=== PATIENT | male | born 1935 | race Caucasian/White ===

== ENCOUNTER → 2019-12-03 | Outpatient (CLI) | payer MEDICARE | END | disposition home or self-care (01) | LOC: SHCH 08:21 | PROVIDERS: ATTEND Internal Medicine Cardiovascular Disease | DX: R55 Syncope and collapse (principal); R01.1 Cardiac murmur, unspecified; I35.8 Other nonrheumatic aortic valve disorders; I51.7 Cardiomegaly | CPT/HCPCS: 93306; 93880 ==

== ENCOUNTER 2020-11-14 11:09 | Inpatient (IN) | payer MEDICARE ==
[~2020-11-14] VITALS: Ht 172.7 cm; Wt 61.3 kg
[~2020-11-14 11:09] MED LIST: ATEN50TA PO; ATOR40TA71 PO; TRAN4TAB24 PO; TRAV2.5D6 OU
[2020-11-14 11:32] LABS: BASOPHILS % (AUTO) 0.5 % (0.0-5.0); EOSINOPHILS % (AUTO) 0.2 % (0.0-8.0); HEMATOCRIT 35.4 % (42-54); LYMPHOCYTES % (AUTO) 11.8 % (21.0-51.0); MEAN CORPUSCULAR HEMOGLOBIN 27.3 pg (27.0-33.0); MEAN CORPUSCULAR HGB CONC 32.5 g/dL (32.0-36.0); MEAN CORPUSCULAR VOLUME 84.1 fL (79-99); MONOCYTES % (AUTO) 9.9 % (3.0-13.0); NEUTROPHILS % (AUTO) 77.3 % (40.0-77.0); PLATELET COUNT (AUTO) 220 K/uL (130-400); RED BLOOD CELL COUNT(AUTO) 4.21 MIL/uL (4.50-6.20); RED CELL DISTRIBUTION WIDTH 15.7 % (11.0-15.5); WHITE BLOOD COUNT (AUTO) 9.8 K/uL (4.8-10.8)
[2020-11-14] MEDS ORDERED: ONDANSETRON HCL 4 MG/2 ML VIAL ONE (11:42)
[2020-11-14] MEDS ORDERED: MORPHINE SULFATE 4 MG/1ML SYG ONE (11:42)
[2020-11-14 11:43] LABS: INR 1.09 (0.85-1.15); PROTHROMBIN TIME 11.6 SEC (9.6-11.6)
[2020-11-14 11:44] LABS: PARTIAL THROMBOPLASTIN TIME 25.1 SEC (26.3-35.5)
[2020-11-14 11:45] LABS: CARBON DIOXIDE 25 mmol/L (21-32); CHLORIDE 97 mmol/L (101-111); CREATININE 1.2 mg/dL (0.5-1.5); GLOMERULAR FILTR. RATE CALC 61 mL/min (>60); GLUCOSE,RANDOM 142 mg/dL (70-105); POTASSIUM 4.2 mmol/L (3.5-5.1); SODIUM SERUM 135 mmol/L (136-145); UREA NITROGEN, BLOOD 19 mg/dL (7-18)
[2020-11-14 11:56] LABS: B-TYPE NATRIURETIC PEPTIDE 68 pg/mL (0-100)
[2020-11-14 11:58] LABS: ALANINE AMINOTRANSFERASE 22 U/L (12-78); ALBUMIN 2.6 g/dL (3.5-5.0); ASPARTATE AMINOTRANSFERASE 22 U/L (10-37); BILIRUBIN,TOTAL 0.5 mg/dL (0.2-1.0); CREATINE KINASE, TOTAL 33 U/L (21-232); MYOGLOBIN 72 ng/mL (10-92); TOTAL PROTEIN, SERUM 6.6 g/dL (6.0-8.3); TROPONIN I < 0.04 ng/mL (0.00-0.06)
[2020-11-14] MEDS ORDERED: ONDANSETRON HCL 4 MG/2 ML VIAL IV PRN (14:45)
[2020-11-14] MEDS ORDERED: LACTULOSE 20 GM/30 ML UDCUP PO PRN (14:45)
[2020-11-14] MEDS ORDERED: DiphenhydrAMINE HCL 50 MG/ML VIAL IV PRN (14:45)
[2020-11-14] MEDS: LACTATED RINGERS 1000ML 1,000 ML IV SCH (14:45)
[2020-11-14] MEDS ORDERED: ACETAMINOPHEN 325 MG TAB PO PRN ×2 (14:45)
[2020-11-14] MEDS ORDERED: MAG HYDROX/AL HYDROX/SIMETH ES 30 ML SUSP UDCUP PO PRN (14:45)
[2020-11-14] MEDS ORDERED: GUAIFENESIN-DM 200/20 MG 10 ML PO PRN (14:45)
[2020-11-14] MEDS ORDERED: NITROGLYCERIN 0.4 MG SL TAB SL PRN (14:45)
[2020-11-14] MEDS ORDERED: DIPHENHYDRAMINE HCL 25 MG CAPSULE PO PRN (14:45)
[2020-11-14] MEDS ORDERED: MORPHINE SULFATE 2 MG/ML 1ML SYG ONE (15:07)
[2020-11-14] MEDS ORDERED: LACTATED RINGERS 1000ML 1,000 ML IV ONE (16:37)
[2020-11-14 19:05] VITALS: BP 151/79
[2020-11-14] MEDS ORDERED: TAMS-1 PO (19:55)
[2020-11-14 20:00] VITALS: BP 150/80
[2020-11-15] VITALS: BP 132/73
[2020-11-15] MEDS: LACTATED RINGERS 1000ML 1,000 ML IV SCH ×3 (00:45→19:27)
[2020-11-15 04:00] VITALS: BP 152/75
[2020-11-15] MEDS: MORPHINE SULFATE 2 MG/ML 1ML SYG IM PRN ×2 (04:13→12:06)
[2020-11-15 04:55] LABS: BASOPHILS % (AUTO) 0.6 % (0.0-5.0); EOSINOPHILS % (AUTO) 2.5 % (0.0-8.0); HEMATOCRIT 34.1 % (42-54); LYMPHOCYTES % (AUTO) 22.6 % (21.0-51.0); MEAN CORPUSCULAR HEMOGLOBIN 26.7 pg (27.0-33.0); MEAN CORPUSCULAR HGB CONC 31.7 g/dL (32.0-36.0); MEAN CORPUSCULAR VOLUME 84.4 fL (79-99); MONOCYTES % (AUTO) 14.1 % (3.0-13.0); NEUTROPHILS % (AUTO) 60.2 % (40.0-77.0); PLATELET COUNT (AUTO) 216 K/uL (130-400); RED BLOOD CELL COUNT(AUTO) 4.04 MIL/uL (4.50-6.20); RED CELL DISTRIBUTION WIDTH 15.8 % (11.0-15.5); WHITE BLOOD COUNT (AUTO) 5.2 K/uL (4.8-10.8)
[2020-11-15 05:30] LABS: ALBUMIN 2.3 g/dL (3.5-5.0); BILIRUBIN,TOTAL 0.4 mg/dL (0.2-1.0); POTASSIUM 4.3 mmol/L (3.5-5.1)
[2020-11-15 08:00] VITALS: BP 152/82
[2020-11-15] MEDS: FAMOTIDINE/PF 20 MG/2 ML VIAL IV SCH (09:00)
[2020-11-15 11:00] VITALS: BP 122/74
[2020-11-15 16:00] VITALS: BP 111/71
[2020-11-15] MEDS ORDERED: MORPHINE SULFATE 2 MG/ML 1ML SYG IV PRN (16:45)
[2020-11-15 20:00] VITALS: BP 122/72
[2020-11-16] VITALS: BP 104/61
[2020-11-16 04:00] VITALS: BP 122/69
[2020-11-16 04:34] LABS: BASOPHILS % (AUTO) 0.5 % (0.0-5.0); EOSINOPHILS % (AUTO) 4.8 % (0.0-8.0); HEMATOCRIT 35.3 % (42-54); LYMPHOCYTES % (AUTO) 31.7 % (21.0-51.0); MEAN CORPUSCULAR HEMOGLOBIN 27.4 pg (27.0-33.0); MEAN CORPUSCULAR HGB CONC 31.7 g/dL (32.0-36.0); MEAN CORPUSCULAR VOLUME 86.3 fL (79-99); MONOCYTES % (AUTO) 13.6 % (3.0-13.0); NEUTROPHILS % (AUTO) 49.2 % (40.0-77.0); PLATELET COUNT (AUTO) 201 K/uL (130-400); RED BLOOD CELL COUNT(AUTO) 4.09 MIL/uL (4.50-6.20); RED CELL DISTRIBUTION WIDTH 15.7 % (11.0-15.5); WHITE BLOOD COUNT (AUTO) 5.6 K/uL (4.8-10.8)
[2020-11-16 04:50] LABS: ALBUMIN 2.4 g/dL (3.5-5.0); BILIRUBIN,TOTAL 0.4 mg/dL (0.2-1.0); CREATININE 1.1 mg/dL (0.5-1.5); TOTAL PROTEIN, SERUM 6.4 g/dL (6.0-8.3)
[2020-11-16] MEDS: LACTATED RINGERS 1000ML 1,000 ML IV SCH ×2 (05:49→23:32)
[2020-11-16 08:32] VITALS: BP 115/76
[2020-11-16] MEDS: FAMOTIDINE/PF 20 MG/2 ML VIAL IV SCH (09:40)
[2020-11-16 11:35] VITALS: BP 117/72
[2020-11-16 18:04] VITALS: BP 117/63
[2020-11-16 20:04] VITALS: BP 111/63
[2020-11-17 00:04] VITALS: BP 128/70
[2020-11-17 04:00] VITALS: BP 125/64
[2020-11-17 04:10] LABS: BASOPHILS % (AUTO) 0.8 % (0.0-5.0); EOSINOPHILS % (AUTO) 5.3 % (0.0-8.0); HEMATOCRIT 29.2 % (42-54); LYMPHOCYTES % (AUTO) 26.8 % (21.0-51.0); MEAN CORPUSCULAR HEMOGLOBIN 27.1 pg (27.0-33.0); MEAN CORPUSCULAR HGB CONC 32.2 g/dL (32.0-36.0); MEAN CORPUSCULAR VOLUME 84.1 fL (79-99); MONOCYTES % (AUTO) 12.5 % (3.0-13.0); NEUTROPHILS % (AUTO) 54.2 % (40.0-77.0); PLATELET COUNT (AUTO) 215 K/uL (130-400); RED BLOOD CELL COUNT(AUTO) 3.47 MIL/uL (4.50-6.20); RED CELL DISTRIBUTION WIDTH 15.4 % (11.0-15.5); WHITE BLOOD COUNT (AUTO) 4.7 K/uL (4.8-10.8)
[2020-11-17 04:29] LABS: BILIRUBIN,TOTAL 0.3 mg/dL (0.2-1.0); POTASSIUM 3.6 mmol/L (3.5-5.1); TOTAL PROTEIN, SERUM 5.2 g/dL (6.0-8.3)
[2020-11-17] MEDS ORDERED: POTASSIUM CHLORIDE 20 MEQ ERTAB PO SCH (07:45)
[2020-11-17] MEDS ORDERED: MAGNESIUM 2GM PREMIX 50ML 50 ML IV PRN (07:45)
[2020-11-17 08:05] VITALS: BP 137/80
[2020-11-17] MEDS: FAMOTIDINE/PF 20 MG/2 ML VIAL IV SCH (08:33)
[2020-11-17 11:30] VITALS: BP 127/69
[2020-11-17 16:25] VITALS: BP 130/77
== END 2020-11-17 18:40 | disposition home or self-care (01) | DRG 390 ==
LOC: EDH 11:09 → EDHIP 14:45 → 3CH 17:30
PROVIDERS: ADMIT Family Medicine; ATTEND Family Medicine
PROC: 0D9670Z Drainage of Stomach with Drainage Device, Via Natural or Artificial Opening (ICD-10-PCS; principal; 2020-11-14)
DX: K56.609 Unspecified intestinal obstruction, unspecified as to partial versus complete obstruction (principal); E78.5 Hyperlipidemia, unspecified; I10 Essential (primary) hypertension; E78.00 Pure hypercholesterolemia, unspecified; I25.10 Atherosclerotic heart disease of native coronary artery without angina pectoris; Z87.891 Personal history of nicotine dependence; Z95.1 Presence of aortocoronary bypass graft; Z95.5 Presence of coronary angioplasty implant and graft; Z83.3 Family history of diabetes mellitus; Z82.49 Family history of ischemic heart disease and other diseases of the circulatory system
CPT/HCPCS: 36415; 71045; 74018; 74176; 80053; 82550; 83605; 83690; 83735; 83874; 83880; 84145; 84484; 85025; 85610; 85730; 86900; 86901; 87040; 93005; G0378; J2270; J2405; J3475; J3490; J7120

== ENCOUNTER 2020-11-23 05:00 | Inpatient (IN) | payer MEDICARE ==
[~2020-11-23] VITALS: Ht 172.7 cm; Wt 60.9 kg
[~2020-11-23 05:00] MED LIST changes: +TAMS-1 PO; -TRAN4TAB24 PO; +TRAN4TAB25 PO
[2020-11-23] MEDS ORDERED: ONDANSETRON 4MG INJ ONE ×2 (05:14→13:59)
[2020-11-23 05:17] LABS: BASOPHILS % (AUTO) 0.2 % (0.0-5.0); EOSINOPHILS % (AUTO) 0.1 % (0.0-8.0); HEMATOCRIT 37.8 % (42-54); LYMPHOCYTES % (AUTO) 9.4 % (21.0-51.0); MEAN CORPUSCULAR HEMOGLOBIN 27.1 pg (27.0-33.0); MEAN CORPUSCULAR VOLUME 84.6 fL (79-99); MONOCYTES % (AUTO) 5.8 % (3.0-13.0); NEUTROPHILS % (AUTO) 84.2 % (40.0-77.0); PLATELET COUNT (AUTO) 314 K/uL (130-400); RED BLOOD CELL COUNT(AUTO) 4.47 MIL/uL (4.50-6.20); RED CELL DISTRIBUTION WIDTH 15.9 % (11.0-15.5); WHITE BLOOD COUNT (AUTO) 14.4 K/uL (4.8-10.8)
[2020-11-23 05:32] LABS: CREATININE 1.1 mg/dL (0.5-1.5); POTASSIUM 5.2 mmol/L (3.5-5.1)
[2020-11-23 05:34] LABS: ALBUMIN 2.5 g/dL (3.5-5.0); BILIRUBIN,TOTAL 0.4 mg/dL (0.2-1.0); TOTAL PROTEIN, SERUM 6.3 g/dL (6.0-8.3)
[2020-11-23] MEDS ORDERED: MORPHINE 2 MG SYG ONE ×2 (05:35→14:00)
[2020-11-23 05:37] LABS: INR 1.07 (0.85-1.15); PROTHROMBIN TIME 11.4 SEC (9.6-11.6)
[2020-11-23 05:38] LABS: PARTIAL THROMBOPLASTIN TIME 23.6 SEC (26.3-35.5)
[2020-11-23] MEDS ORDERED: IOHEXOL-350 75 ML VIAL IV ONE (05:54)
[2020-11-23] MEDS ORDERED: ZOSYN 3.375GM+NS 50ML 50 ML IV ONE (06:57)
[2020-11-23] MEDS ORDERED: ACETAMINOPHEN 325 MG TAB PO PRN ×2 (08:30)
[2020-11-23] MEDS ORDERED: PHARMACY COMMUNICATION MISC SCH (08:30)
[2020-11-23] MEDS: ENOXAPARIN SODIUM 40 MG/0.4 ML SYRINGE SQ SCH (09:00)
[2020-11-23] MEDS: LISINOPRIL 40 MG TABLET PO SCH (09:00)
[2020-11-23] MEDS: ATENOLOL 50 MG TABLET PO SCH (09:00)
[2020-11-23] MEDS: FAMOTIDINE 20MG VIAL IV SCH ×2 (09:00→23:07)
[2020-11-23 09:03] LABS: RETICULOCYTE % (AUTO) 1.32 % (0.42-2.23)
[2020-11-23 09:22] LABS: % IRON SATURATION 8.9 % (30-44)
[2020-11-23 09:31] LABS: MAGNESIUM 1.7 mg/dL (1.80-2.40); PHOSPHORUS 4.2 mg/dL (2.5-4.9); THYROID STIMULATING HORMONE 2.36 uIU/mL (0.36-3.74)
[2020-11-23] MEDS ORDERED: ENOXAPARIN SODIUM 40 MG/0.4 ML SYRINGE SQ ONE (09:31)
[2020-11-23] MEDS ORDERED: FAMOTIDINE 20MG VIAL IV ONE (09:32)
[2020-11-23] MEDS ORDERED: ATENOLOL 25 MG TABLET ONE (09:49)
[2020-11-23] MEDS ORDERED: METOCLOPRAMIDE 10 MG/2 ML VIAL ONE (09:57)
[2020-11-23] MEDS: METOCLOPRAMIDE 10 MG/2 ML VIAL IVP SCH ×2 (12:00→18:00)
[2020-11-23] MEDS ORDERED: MORPHINE 2 MG SYG IVP PRN (14:30)
[2020-11-23] MEDS ORDERED: ONDANSETRON 4MG INJ IVP PRN (14:30)
[2020-11-23] MEDS: LUBIPROSTONE 24 MCG CAP PO SCH (17:00)
[2020-11-23] MEDS ORDERED: ATORVASTATIN 40 MG TABLET ONE (20:32)
[2020-11-23] MEDS ORDERED: TAMSULOSIN HCL 0.4 MG CAP.ER.24H ONE (20:32)
[2020-11-23] MEDS: TAMSULOSIN HCL 0.4 MG CAP.ER.24H PO SCH (21:00)
[2020-11-23] MEDS: ATORVASTATIN 20 MG TABLET PO SCH (21:00)
[2020-11-23 22:25] VITALS: BP 122/68
[2020-11-23] MEDS: 0.9%NACL 1000ML 1,000 ML IV SCH (23:01)
[2020-11-24] MEDS: METOCLOPRAMIDE 10 MG/2 ML VIAL IVP SCH ×4 (00:54→20:40)
[2020-11-24 03:59] VITALS: BP 122/69
[2020-11-24 07:59] VITALS: BP 101/50
[2020-11-24 08:56] LABS: BASOPHILS % (AUTO) 0.1 % (0.0-5.0); EOSINOPHILS % (AUTO) 0.4 % (0.0-8.0); HEMATOCRIT 29.8 % (42-54); LYMPHOCYTES % (AUTO) 6.8 % (21.0-51.0); MEAN CORPUSCULAR HEMOGLOBIN 27.1 pg (27.0-33.0); MEAN CORPUSCULAR HGB CONC 32.2 g/dL (32.0-36.0); MEAN CORPUSCULAR VOLUME 84.2 fL (79-99); MONOCYTES % (AUTO) 3.4 % (3.0-13.0); PLATELET COUNT (AUTO) 232 K/uL (130-400); RED BLOOD CELL COUNT(AUTO) 3.54 MIL/uL (4.50-6.20)
[2020-11-24] MEDS: ENOXAPARIN SODIUM 40 MG/0.4 ML SYRINGE SQ SCH (09:00)
[2020-11-24 09:11] LABS: ALBUMIN 1.8 g/dL (3.5-5.0); BILIRUBIN,TOTAL 0.3 mg/dL (0.2-1.0); CREATININE 1.1 mg/dL (0.5-1.5); POTASSIUM 3.9 mmol/L (3.5-5.1); TOTAL PROTEIN, SERUM 4.9 g/dL (6.0-8.3)
[2020-11-24] MEDS: 0.9%NACL 1000ML 1,000 ML IV SCH ×3 (10:02→20:42)
[2020-11-24] MEDS: LUBIPROSTONE 24 MCG CAP PO SCH ×2 (10:03→21:00)
[2020-11-24] MEDS: FAMOTIDINE 20MG VIAL IV SCH ×2 (10:03→20:40)
[2020-11-24] MEDS: ATENOLOL 50 MG TABLET PO SCH (10:05)
[2020-11-24] MEDS: LISINOPRIL 40 MG TABLET PO SCH (10:06)
[2020-11-24 11:48] VITALS: BP 113/64
[2020-11-24 16:00] VITALS: BP 107/59
[2020-11-24 20:34] VITALS: BP 98/56
[2020-11-24] MEDS: TAMSULOSIN HCL 0.4 MG CAP.ER.24H PO SCH (20:40)
[2020-11-24] MEDS: ATORVASTATIN 20 MG TABLET PO SCH (20:40)
[2020-11-24 23:52] VITALS: BP 111/55
[2020-11-25] VITALS (24 sets, daily range): BP systolic 99–136; BP diastolic 47–72
[2020-11-25] MEDS: METOCLOPRAMIDE 10 MG/2 ML VIAL IVP SCH ×3 (00:52→13:08)
[2020-11-25] MEDS: LUBIPROSTONE 24 MCG CAP PO SCH ×2 (08:00→19:01)
[2020-11-25] MEDS ORDERED: PROPOFOL 10 MG/ML 20ML VIAL IV ONE (08:47)
[2020-11-25] MEDS: LISINOPRIL 40 MG TABLET PO SCH (09:00)
[2020-11-25] MEDS: ATENOLOL 50 MG TABLET PO SCH (09:00)
[2020-11-25] MEDS: ENOXAPARIN SODIUM 40 MG/0.4 ML SYRINGE SQ SCH (09:00)
[2020-11-25] MEDS: PANTOPRAZOLE 40 MG TAB DR PO SCH (12:51)
[2020-11-25] MEDS: 0.9%NACL 1000ML 1,000 ML IV SCH (12:52)
[2020-11-25] MEDS: FAMOTIDINE 20MG VIAL IV SCH ×2 (12:52→20:51)
[2020-11-25] MEDS ORDERED: COMPOUND IV MISC 1 EACH IVSOLN MISC PRN (15:15)
[2020-11-25] MEDS: IRON SUCROSE COMPLEX 100 MG in 0.9%NACL 50ML 50 ML IV SCH (15:48)
[2020-11-25] MEDS: METOCLOPRAMIDE 5 MG TABLET PO SCH (19:01)
[2020-11-25] MEDS: TAMSULOSIN HCL 0.4 MG CAP.ER.24H PO SCH (20:51)
[2020-11-25] MEDS ORDERED: ATORVASTATIN 40 MG TABLET PO SCH (21:00)
[2020-11-26] VITALS: BP 118/61
[2020-11-26 03:46] VITALS: BP 106/60
[2020-11-26 04:39] LABS: BASOPHILS % (AUTO) 0.6 % (0.0-5.0); EOSINOPHILS % (AUTO) 3.2 % (0.0-8.0); HEMATOCRIT 25.9 % (42-54); LYMPHOCYTES % (AUTO) 19.9 % (21.0-51.0); MEAN CORPUSCULAR HEMOGLOBIN 27.2 pg (27.0-33.0); MEAN CORPUSCULAR VOLUME 84.9 fL (79-99); NEUTROPHILS % (AUTO) 70.1 % (40.0-77.0); PLATELET COUNT (AUTO) 189 K/uL (130-400); RED BLOOD CELL COUNT(AUTO) 3.05 MIL/uL (4.50-6.20); RED CELL DISTRIBUTION WIDTH 15.5 % (11.0-15.5); WHITE BLOOD COUNT (AUTO) 5.3 K/uL (4.8-10.8)
[2020-11-26 04:59] LABS: ALBUMIN 1.6 g/dL (3.5-5.0); BILIRUBIN,TOTAL 0.3 mg/dL (0.2-1.0); CREATININE 0.9 mg/dL (0.5-1.5); POTASSIUM 3.3 mmol/L (3.5-5.1); TOTAL PROTEIN, SERUM 4.7 g/dL (6.0-8.3)
[2020-11-26 05:24] LABS: MAGNESIUM 1.5 mg/dL (1.80-2.40)
[2020-11-26] MEDS ORDERED: MAGNESIUM 2GM PREMIX 50ML 50 ML IV PRN ×2 (06:00→06:15)
[2020-11-26] MEDS: LUBIPROSTONE 24 MCG CAP PO SCH ×2 (06:10→17:18)
[2020-11-26] MEDS: METOCLOPRAMIDE 5 MG TABLET PO SCH ×3 (06:10→17:18)
[2020-11-26] MEDS ORDERED: MAGNESIUM 2GM PREMIX 50ML 50 ML IV ONE (06:10)
[2020-11-26] MEDS: 0.9%NACL 1000ML 1,000 ML IV SCH (06:15)
[2020-11-26 08:42] VITALS: BP 129/64
[2020-11-26] MEDS ORDERED: POTASSIUM CHLORIDE 20MEQ/100ML 100 ML IV PRN ×2 (08:45)
[2020-11-26] MEDS ORDERED: LIDOCAINE HCL-MPF 1% 2ML VIAL IV PRN ×2 (08:45)
[2020-11-26] MEDS ORDERED: KCL 20 MEQ ERTAB PO PRN (08:45)
[2020-11-26] MEDS: IRON SUCROSE COMPLEX 100 MG in 0.9%NACL 50ML 50 ML IV SCH (09:45)
[2020-11-26] MEDS: LISINOPRIL 40 MG TABLET PO SCH (09:45)
[2020-11-26] MEDS: PANTOPRAZOLE 40 MG TAB DR PO SCH (09:45)
[2020-11-26] MEDS: FAMOTIDINE 20MG VIAL IV SCH (09:46)
[2020-11-26] MEDS: ATENOLOL 50 MG TABLET PO SCH (09:46)
[2020-11-26] MEDS: POTASSIUM CHLORIDE 10% ELIXIR 20 MEQ/15 ML UDCUP PO PRN ×3 (09:47→17:18)
[2020-11-26] MEDS: ENOXAPARIN SODIUM 40 MG/0.4 ML SYRINGE SQ SCH (09:48)
[2020-11-26 12:43] VITALS: BP 127/67
[2020-11-26] MEDS ORDERED: PANT40TA54 PO (16:56)
== END 2020-11-26 18:00 | disposition home or self-care (01) | DRG 389 ==
LOC: EDH 05:00 → EDHIP 08:22 → 3DH 21:19
PROVIDERS: ADMIT Internal Medicine; ATTEND Internal Medicine
PROC: 0DJ08ZZ Inspection of Upper Intestinal Tract, Via Natural or Artificial Opening Endoscopic (ICD-10-PCS; principal; 2020-11-25)
DX: K56.609 Unspecified intestinal obstruction, unspecified as to partial versus complete obstruction (principal); E87.1 Hypo-osmolality and hyponatremia; K21.00 Gastro-esophageal reflux disease with esophagitis, without bleeding; E87.5 Hyperkalemia; D72.829 Elevated white blood cell count, unspecified; I10 Essential (primary) hypertension; E78.5 Hyperlipidemia, unspecified; D64.9 Anemia, unspecified; Z53.20 Procedure and treatment not carried out because of patient's decision for unspecified reasons; Z87.891 Personal history of nicotine dependence; Z90.49 Acquired absence of other specified parts of digestive tract; Z95.1 Presence of aortocoronary bypass graft; N40.0 Benign prostatic hyperplasia without lower urinary tract symptoms; Z20.822 Contact with and (suspected) exposure to COVID-19
CPT/HCPCS: 36415; 43235; 71045; 74018; 74174; 80053; 83540; 83550; 83605; 83690; 83735; 84100; 84443; 85025; 85045; 85610; 85730; 87426; 93005; A4606; G0378; J1650; J1756; J2405; J2543; J2704; J2765; J3475; J3490; J7030; Q9967; U0003

== ENCOUNTER 2020-12-11 17:53 | Inpatient (IN) | payer MEDICARE ==
[~2020-12-11] VITALS: Ht 172.7 cm; Wt 62.1 kg
[~2020-12-11 17:53] MED LIST changes: +PANT40TA54 PO
[2020-12-11] MEDS ORDERED: DICYCLOMINE HCL 20 MG TAB ONE (18:30)
[2020-12-11 18:35] LABS: BASOPHILS % (AUTO) 0.3 % (0.0-5.0); HEMATOCRIT 34.5 % (42-54); LYMPHOCYTES % (AUTO) 9.7 % (21.0-51.0); MEAN CORPUSCULAR HEMOGLOBIN 26.1 pg (27.0-33.0); MEAN CORPUSCULAR VOLUME 84.1 fL (79-99); MONOCYTES % (AUTO) 5.3 % (3.0-13.0); NEUTROPHILS % (AUTO) 83.4 % (40.0-77.0); PLATELET COUNT (AUTO) 231 K/uL (130-400); RED CELL DISTRIBUTION WIDTH 16.8 % (11.0-15.5); WHITE BLOOD COUNT (AUTO) 12.7 K/uL (4.8-10.8)
[2020-12-11 18:48] LABS: POTASSIUM 4.9 mmol/L (3.5-5.1)
[2020-12-11 18:53] LABS: ALBUMIN 2.4 g/dL (3.5-5.0); BILIRUBIN,TOTAL 0.2 mg/dL (0.2-1.0); TOTAL PROTEIN, SERUM 6.3 g/dL (6.0-8.3)
[2020-12-11 18:58] LABS: CREATININE 1.1 mg/dL (0.5-1.5)
[2020-12-11] MEDS ORDERED: IOHEXOL-350 75 ML VIAL IV ONE (19:30)
[2020-12-11] MEDS ORDERED: ZOSYN 3.375GM+NS 50ML 50 ML IV ONE (20:50)
[2020-12-11] MEDS ORDERED: LACTULOSE 20 GM/30 ML UDCUP PO PRN (22:15)
[2020-12-11] MEDS ORDERED: NITROGLYCERIN 0.4 MG SL TAB SL PRN (22:15)
[2020-12-11] MEDS ORDERED: ACETAMINOPHEN 325 MG TAB PO PRN ×2 (22:15)
[2020-12-11] MEDS ORDERED: GUAIFENESIN-DM 200/20 MG 10 ML PO PRN (22:15)
[2020-12-11] MEDS ORDERED: DiphenhydrAMINE HCL 50 MG/ML VIAL IV PRN (22:15)
[2020-12-11] MEDS ORDERED: ONDANSETRON 4MG INJ IV PRN (22:15)
[2020-12-11] MEDS ORDERED: DIPHENHYDRAMINE HCL 25 MG CAPSULE PO PRN (22:15)
[2020-12-11] MEDS ORDERED: MAG/ALUM/SIMETH 30 ML UDCUP PO PRN (22:15)
[2020-12-12 05:05] LABS: BASOPHILS % (AUTO) 0.6 % (0.0-5.0); EOSINOPHILS % (AUTO) 3.3 % (0.0-8.0); HEMATOCRIT 29.2 % (42-54); LYMPHOCYTES % (AUTO) 26.9 % (21.0-51.0); MEAN CORPUSCULAR HEMOGLOBIN 26.6 pg (27.0-33.0); MEAN CORPUSCULAR HGB CONC 31.8 g/dL (32.0-36.0); MEAN CORPUSCULAR VOLUME 83.7 fL (79-99); MONOCYTES % (AUTO) 10.7 % (3.0-13.0); NEUTROPHILS % (AUTO) 58.1 % (40.0-77.0); PLATELET COUNT (AUTO) 181 K/uL (130-400); RED BLOOD CELL COUNT(AUTO) 3.49 MIL/uL (4.50-6.20); RED CELL DISTRIBUTION WIDTH 16.8 % (11.0-15.5); WHITE BLOOD COUNT (AUTO) 5.1 K/uL (4.8-10.8)
[2020-12-12 05:29] LABS: ALBUMIN 1.8 g/dL (3.5-5.0); BILIRUBIN,TOTAL 0.2 mg/dL (0.2-1.0); POTASSIUM 3.9 mmol/L (3.5-5.1)
[2020-12-12] MEDS ORDERED: ENOXAPARIN SODIUM 30 MG/0.3 ML SQ ONE (08:13)
[2020-12-12] MEDS: ENOXAPARIN SODIUM 30 MG/0.3 ML SQ SCH (09:00)
[2020-12-12 20:17] LABS: APPEARANCE,URINE Clear (CLEAR); BILIRUBIN,URINE Negative (NEGATIVE); COLOR,URINE Yellow (YELLOW); GLUCOSE, URINE (UA) Negative (NEGATIVE); KETONES,URINE Negative (NEGATIVE); LEUKOCYTE ESTERASE ,URINE Negative (NEGATIVE); NITRATE,URINE Negative (NEGATIVE); OCCULT BLOOD,URINE Negative (NEGATIVE); PROTEIN,URINE Negative (NEGATIVE); UROBILINOGEN,URINE 0.2 mg/dL (0.2-1.0)
[2020-12-12 22:50] VITALS: BP 172/97
[2020-12-12] MEDS: DEXTROSE 5 % AND 0.9 % NACL 1,000 ML IV SCH (23:10)
[2020-12-12] MEDS ORDERED: DOCU-116 PO (23:25)
[2020-12-13] MEDS: DEXTROSE 5 % AND 0.9 % NACL 1,000 ML IV SCH ×5 (00:40→18:54)
[2020-12-13 03:31] VITALS: BP 134/77
[2020-12-13 06:10] LABS: BASOPHILS % (AUTO) 0.9 % (0.0-5.0); EOSINOPHILS % (AUTO) 7.1 % (0.0-8.0); HEMATOCRIT 32.1 % (42-54); LYMPHOCYTES % (AUTO) 25.2 % (21.0-51.0); MEAN CORPUSCULAR HEMOGLOBIN 26.1 pg (27.0-33.0); MEAN CORPUSCULAR HGB CONC 31.2 g/dL (32.0-36.0); MEAN CORPUSCULAR VOLUME 83.8 fL (79-99); MONOCYTES % (AUTO) 11.9 % (3.0-13.0); NEUTROPHILS % (AUTO) 54.7 % (40.0-77.0); PLATELET COUNT (AUTO) 214 K/uL (130-400); RED BLOOD CELL COUNT(AUTO) 3.83 MIL/uL (4.50-6.20); RED CELL DISTRIBUTION WIDTH 16.6 % (11.0-15.5); WHITE BLOOD COUNT (AUTO) 4.5 K/uL (4.8-10.8)
[2020-12-13 06:34] LABS: ALBUMIN 1.9 g/dL (3.5-5.0); BILIRUBIN,TOTAL 0.3 mg/dL (0.2-1.0); POTASSIUM 3.7 mmol/L (3.5-5.1); TOTAL PROTEIN, SERUM 5.3 g/dL (6.0-8.3)
[2020-12-13 07:27] VITALS: BP 171/90
[2020-12-13] MEDS ORDERED: ASPI-1012 PO (09:59)
[2020-12-13] MEDS: ENOXAPARIN SODIUM 30 MG/0.3 ML SQ SCH (10:21)
[2020-12-13 11:12] VITALS: BP 121/87
[2020-12-13 15:57] VITALS: BP 129/81
[2020-12-13] MEDS: DOCUSATE SODIUM 100 MG CAP PO SCH (19:55)
[2020-12-13 20:52] VITALS: BP 156/92
[2020-12-13] MEDS ORDERED: ATORVASTATIN 20 MG TABLET PO SCH (21:00)
[2020-12-13] MEDS ORDERED: LATANOPROST 2.5 ML DROPS OU SCH (21:00)
[2020-12-13] MEDS ORDERED: TAMSULOSIN HCL 0.4 MG CAP.ER.24H PO SCH (21:00)
[2020-12-13 23:31] VITALS: BP 128/76
[2020-12-14] MEDS: DEXTROSE 5 % AND 0.9 % NACL 1,000 ML IV SCH (02:40)
[2020-12-14 03:28] VITALS: BP 126/64
[2020-12-14 05:39] LABS: EOSINOPHILS % (AUTO) 5.3 % (0.0-8.0); LYMPHOCYTES % (AUTO) 31.1 % (21.0-51.0); MEAN CORPUSCULAR HEMOGLOBIN 26.1 pg (27.0-33.0); MEAN CORPUSCULAR HGB CONC 31.2 g/dL (32.0-36.0); MEAN CORPUSCULAR VOLUME 83.7 fL (79-99); MONOCYTES % (AUTO) 12.5 % (3.0-13.0); NEUTROPHILS % (AUTO) 49.6 % (40.0-77.0); PLATELET COUNT (AUTO) 201 K/uL (130-400); RED BLOOD CELL COUNT(AUTO) 4.06 MIL/uL (4.50-6.20); RED CELL DISTRIBUTION WIDTH 16.5 % (11.0-15.5); WHITE BLOOD COUNT (AUTO) 4.2 K/uL (4.8-10.8)
[2020-12-14 06:10] LABS: ALBUMIN 1.9 g/dL (3.5-5.0); BILIRUBIN,TOTAL 0.2 mg/dL (0.2-1.0); CREATININE 0.9 mg/dL (0.5-1.5); POTASSIUM 3.6 mmol/L (3.5-5.1); TOTAL PROTEIN, SERUM 5.2 g/dL (6.0-8.3)
[2020-12-14 08:02] VITALS: BP 119/70
[2020-12-14] MEDS ORDERED: ATENOLOL 25 MG TABLET ONE (08:58)
[2020-12-14] MEDS ORDERED: LISINOPRIL 20 MG TABLET PO SCH (09:00)
[2020-12-14] MEDS ORDERED: ATENOLO PO SCH (09:00)
[2020-12-14] MEDS ORDERED: ATENOLOL PO SCH (09:00)
[2020-12-14] MEDS ORDERED: ASPIRIN 325 MG TABLET PO SCH (09:00)
[2020-12-14] MEDS: DOCUSATE SODIUM 100 MG CAP PO SCH (09:01)
[2020-12-14] MEDS: ENOXAPARIN SODIUM 30 MG/0.3 ML SQ SCH (09:04)
[2020-12-14 11:49] VITALS: BP 127/76
[2020-12-14 16:19] VITALS: BP 138/83
== END 2020-12-14 18:28 | disposition home or self-care (01) | DRG 372 ==
LOC: EDH 17:53 → OBSVTOIN 22:11 → EDHIP 22:11 → 3BH 12-12 21:03
PROVIDERS: ADMIT Family Medicine; ATTEND Family Medicine
DX: A04.9 Bacterial intestinal infection, unspecified (principal); E44.0 Moderate protein-calorie malnutrition; E78.5 Hyperlipidemia, unspecified; I10 Essential (primary) hypertension; Z80.8 Family history of malignant neoplasm of other organs or systems; Z83.3 Family history of diabetes mellitus; Z82.49 Family history of ischemic heart disease and other diseases of the circulatory system; N40.0 Benign prostatic hyperplasia without lower urinary tract symptoms; Z87.891 Personal history of nicotine dependence; Z68.20 Body mass index [BMI] 20.0-20.9, adult; Z90.49 Acquired absence of other specified parts of digestive tract
CPT/HCPCS: 36415; 74018; 74177; 80053; 81003; 83605; 83690; 84484; 85025; 87040; 87177; 87507; 99291; G0378; J1650; J2543; J7042; Q9967

== ENCOUNTER → 2020-12-18 | Outpatient (CLI) | payer MEDICARE ==
[~2020-12-18] MED LIST changes: +ASPI-1012 PO; +DIATR MEGLU/DIATRIZOATE SODIUM 30 ML BOTTLE ONE; +DOCU-116 PO; -PANT40TA54 PO
== END | disposition home or self-care (01) ==
LOC: RAH 08:20
PROVIDERS: ATTEND Specialist
DX: K56.609 Unspecified intestinal obstruction, unspecified as to partial versus complete obstruction (principal)
CPT/HCPCS: 74250; Q9963

== ENCOUNTER 2020-12-24 22:03 | Inpatient (IN) | payer MEDICARE ==
[~2020-12-24] VITALS: Ht 170.2 cm; Wt 64.5 kg
[~2020-12-24 22:03] MED LIST changes: -DIATR MEGLU/DIATRIZOATE SODIUM 30 ML BOTTLE ONE
[2020-12-24 22:39] LABS: BASOPHILS % (AUTO) 0.3 % (0.0-5.0); EOSINOPHILS % (AUTO) 0.8 % (0.0-8.0); HEMATOCRIT 35.5 % (42-54); LYMPHOCYTES % (AUTO) 8.5 % (21.0-51.0); MEAN CORPUSCULAR HEMOGLOBIN 26.5 pg (27.0-33.0); MEAN CORPUSCULAR HGB CONC 32.4 g/dL (32.0-36.0); MEAN CORPUSCULAR VOLUME 81.8 fL (79-99); NEUTROPHILS % (AUTO) 82.1 % (40.0-77.0); PLATELET COUNT (AUTO) 250 K/uL (130-400); RED BLOOD CELL COUNT(AUTO) 4.34 MIL/uL (4.50-6.20); RED CELL DISTRIBUTION WIDTH 18.2 % (11.0-15.5); WHITE BLOOD COUNT (AUTO) 6.3 K/uL (4.8-10.8)
[2020-12-24] MEDS ORDERED: ACETAMINOPHEN 500 MG TABLET ONE (22:45)
[2020-12-24] MEDS ORDERED: 0.9%NACL 1000ML 1,000 ML IV ONE (22:46)
[2020-12-24] MEDS ORDERED: ZOSYN 3.375GM+NS 50ML 50 ML IV ONE (22:46)
[2020-12-24 23:01] LABS: INR 1.1 (0.85-1.15); PROTHROMBIN TIME 11.9 SEC (9.6-11.6)
[2020-12-24 23:02] LABS: PARTIAL THROMBOPLASTIN TIME 24.2 SEC (26.3-35.5)
[2020-12-24 23:06] LABS: ALANINE AMINOTRANSFERASE 19 U/L (12-78); ALBUMIN 2.5 g/dL (3.5-5.0); ASPARTATE AMINOTRANSFERASE 25 U/L (10-37); BILIRUBIN,TOTAL 0.7 mg/dL (0.2-1.0); CARBON DIOXIDE 26 mmol/L (21-32); CHLORIDE 101 mmol/L (101-111); CREATINE KINASE, TOTAL 61 U/L (21-232); CREATININE 1.1 mg/dL (0.5-1.5); GLOMERULAR FILTR. RATE CALC 67 mL/min (>60); GLUCOSE,RANDOM 168 mg/dL (70-105); MYOGLOBIN 62 ng/mL (10-92); POTASSIUM 4.5 mmol/L (3.5-5.1); SODIUM SERUM 136 mmol/L (136-145); TOTAL PROTEIN, SERUM 5.8 g/dL (6.0-8.3); TROPONIN I < 0.04 ng/mL (0.00-0.06); UREA NITROGEN, BLOOD 23 mg/dL (7-18)
[2020-12-25] MEDS ORDERED: 0.9% NACL 500ML IV.SOLN 500 ML IV ONE (00:38)
[2020-12-25] MEDS ORDERED: DiphenhydrAMINE HCL 50 MG/ML VIAL IV PRN (01:00)
[2020-12-25] MEDS ORDERED: GUAIFENESIN-DM 200/20 MG 10 ML PO PRN (01:00)
[2020-12-25] MEDS ORDERED: NITROGLYCERIN 0.4 MG SL TAB SL PRN (01:00)
[2020-12-25] MEDS ORDERED: DIPHENHYDRAMINE HCL 25 MG CAPSULE PO PRN (01:00)
[2020-12-25] MEDS ORDERED: ONDANSETRON 4MG INJ IV PRN (01:00)
[2020-12-25] MEDS ORDERED: MAG/ALUM/SIMETH 30 ML UDCUP PO PRN (01:00)
[2020-12-25] MEDS ORDERED: LACTULOSE 20 GM/30 ML UDCUP PO PRN (01:00)
[2020-12-25] MEDS ORDERED: ACETAMINOPHEN 325 MG TAB PO PRN ×2 (01:00)
[2020-12-25 04:25] VITALS: BP 114/66
[2020-12-25] MEDS: LACTATED RINGERS 1000ML 1,000 ML IV SCH ×3 (05:06→21:26)
[2020-12-25] MEDS: ZOSYN 3.375GM+NS 50ML 50 ML IV SCH ×3 (05:06→21:24)
[2020-12-25] MEDS: ENOXAPARIN SODIUM 30 MG/0.3 ML SQ SCH (08:55)
[2020-12-25 09:01] VITALS: BP 115/66
[2020-12-25 10:26] LABS: APPEARANCE,URINE Clear (CLEAR); BILIRUBIN,URINE Negative (NEGATIVE); COLOR,URINE Yellow (YELLOW); GLUCOSE, URINE (UA) Negative (NEGATIVE); KETONES,URINE Negative (NEGATIVE); LEUKOCYTE ESTERASE ,URINE Negative (NEGATIVE); NITRATE,URINE Negative (NEGATIVE); OCCULT BLOOD,URINE Negative (NEGATIVE); PROTEIN,URINE Negative (NEGATIVE)
[2020-12-25 11:58] VITALS: BP 111/60
[2020-12-25 16:55] VITALS: BP 140/83
[2020-12-25 19:39] VITALS: BP 140/70
[2020-12-25] MEDS: LATANOPROST 2.5 ML DROPS OU SCH (21:00)
[2020-12-25] MEDS: DOCUSATE SODIUM 100 MG CAP PO SCH (21:00)
[2020-12-25] MEDS: ATORVASTATIN 40 MG TABLET PO SCH (21:24)
[2020-12-25] MEDS: TAMSULOSIN HCL 0.4 MG CAP.ER.24H PO SCH (21:25)
[2020-12-25] MEDS ORDERED: PHARMACY COMMUNICATION MISC SCH (22:00)
[2020-12-25 23:43] VITALS: BP 137/71
[2020-12-26 04:00] VITALS: BP 142/83
[2020-12-26] MEDS: ZOSYN 3.375GM+NS 50ML 50 ML IV SCH ×3 (05:00→20:43)
[2020-12-26] MEDS: LACTATED RINGERS 1000ML 1,000 ML IV SCH (06:24)
[2020-12-26 06:25] LABS: BASOPHILS % (AUTO) 0.5 % (0.0-5.0); EOSINOPHILS % (AUTO) 3.9 % (0.0-8.0); HEMATOCRIT 31.4 % (42-54); LYMPHOCYTES % (AUTO) 15.7 % (21.0-51.0); MEAN CORPUSCULAR HGB CONC 31.2 g/dL (32.0-36.0); MEAN CORPUSCULAR VOLUME 83.3 fL (79-99); MONOCYTES % (AUTO) 8.2 % (3.0-13.0); NEUTROPHILS % (AUTO) 71.3 % (40.0-77.0); PLATELET COUNT (AUTO) 198 K/uL (130-400); RED BLOOD CELL COUNT(AUTO) 3.77 MIL/uL (4.50-6.20); RED CELL DISTRIBUTION WIDTH 18.5 % (11.0-15.5); WHITE BLOOD COUNT (AUTO) 5.6 K/uL (4.8-10.8)
[2020-12-26 06:40] LABS: ALBUMIN 1.8 g/dL (3.5-5.0); BILIRUBIN,TOTAL 0.5 mg/dL (0.2-1.0); CREATININE 1.1 mg/dL (0.5-1.5); POTASSIUM 4.8 mmol/L (3.5-5.1); TOTAL PROTEIN, SERUM 4.9 g/dL (6.0-8.3)
[2020-12-26 08:55] VITALS: BP 126/74
[2020-12-26] MEDS: DOCUSATE SODIUM 100 MG CAP PO SCH ×2 (09:00→20:43)
[2020-12-26] MEDS: LISINOPRIL 20 MG TABLET PO SCH (10:00)
[2020-12-26] MEDS: ASPIRIN 325 MG TABLET PO SCH (10:01)
[2020-12-26] MEDS: ATENOLOL 50 MG TABLET PO SCH (10:01)
[2020-12-26] MEDS: ENOXAPARIN SODIUM 30 MG/0.3 ML SQ SCH (10:02)
[2020-12-26] MEDS ORDERED: AEC81 PO (10:05)
[2020-12-26 11:48] VITALS: BP 127/69
[2020-12-26 16:30] VITALS: BP 122/67
[2020-12-26 19:51] VITALS: BP 132/77
[2020-12-26] MEDS: LATANOPROST 2.5 ML DROPS OU SCH (20:43)
[2020-12-26] MEDS: ATORVASTATIN 40 MG TABLET PO SCH (20:43)
[2020-12-26] MEDS: TAMSULOSIN HCL 0.4 MG CAP.ER.24H PO SCH (20:43)
[2020-12-26 23:28] VITALS: BP 120/67
[2020-12-27 04:00] VITALS: BP 127/64
[2020-12-27] MEDS: ZOSYN 3.375GM+NS 50ML 50 ML IV SCH ×3 (05:25→20:50)
[2020-12-27 06:15] LABS: BASOPHILS % (AUTO) 0.8 % (0.0-5.0); EOSINOPHILS % (AUTO) 6.2 % (0.0-8.0); HEMATOCRIT 31.1 % (42-54); LYMPHOCYTES % (AUTO) 20.2 % (21.0-51.0); MEAN CORPUSCULAR HEMOGLOBIN 26.1 pg (27.0-33.0); MEAN CORPUSCULAR HGB CONC 31.8 g/dL (32.0-36.0); MEAN CORPUSCULAR VOLUME 81.8 fL (79-99); MONOCYTES % (AUTO) 9.9 % (3.0-13.0); NEUTROPHILS % (AUTO) 62.5 % (40.0-77.0); PLATELET COUNT (AUTO) 223 K/uL (130-400); RED CELL DISTRIBUTION WIDTH 18.1 % (11.0-15.5); WHITE BLOOD COUNT (AUTO) 4.9 K/uL (4.8-10.8)
[2020-12-27 06:40] LABS: ALBUMIN 1.8 g/dL (3.5-5.0); BILIRUBIN,TOTAL 0.4 mg/dL (0.2-1.0); CREATININE 1.1 mg/dL (0.5-1.5); POTASSIUM 3.5 mmol/L (3.5-5.1); TOTAL PROTEIN, SERUM 4.9 g/dL (6.0-8.3)
[2020-12-27 07:55] VITALS: BP 134/82
[2020-12-27] MEDS: ASPIRIN 325 MG TABLET PO SCH ×2 (11:51→12:01)
[2020-12-27] MEDS: LISINOPRIL 20 MG TABLET PO SCH (11:52)
[2020-12-27] MEDS: DOCUSATE SODIUM 100 MG CAP PO SCH ×2 (11:52→20:50)
[2020-12-27] MEDS: ATENOLOL 50 MG TABLET PO SCH (11:52)
[2020-12-27] MEDS: ENOXAPARIN SODIUM 30 MG/0.3 ML SQ SCH (11:54)
[2020-12-27] MEDS ORDERED: PHARMACY COMMUNICATION MISC SCH (12:15)
[2020-12-27 14:30] VITALS: BP 131/73
[2020-12-27 16:46] VITALS: BP 143/74
[2020-12-27 20:30] VITALS: BP 180/86
[2020-12-27] MEDS ORDERED: HYDRALAZINE 20MG/ML VIAL IM PRN (20:45)
[2020-12-27] MEDS: TAMSULOSIN HCL 0.4 MG CAP.ER.24H PO SCH (20:50)
[2020-12-27] MEDS: ATORVASTATIN 40 MG TABLET PO SCH (20:50)
[2020-12-27] MEDS: PANTOPRAZOLE 40 MG TAB DR PO SCH (20:59)
[2020-12-27] MEDS: LATANOPROST 2.5 ML DROPS OU SCH (20:59)
[2020-12-27 23:00] VITALS: BP 118/64
[2020-12-28 03:30] VITALS: BP 115/63
[2020-12-28] MEDS: ZOSYN 3.375GM+NS 50ML 50 ML IV SCH ×3 (04:38→21:18)
[2020-12-28 05:50] LABS: BASOPHILS % (AUTO) 1.1 % (0.0-5.0); EOSINOPHILS % (AUTO) 6.4 % (0.0-8.0); HEMATOCRIT 33.2 % (42-54); LYMPHOCYTES % (AUTO) 27.3 % (21.0-51.0); MEAN CORPUSCULAR VOLUME 83.8 fL (79-99); PLATELET COUNT (AUTO) 232 K/uL (130-400); RED BLOOD CELL COUNT(AUTO) 3.96 MIL/uL (4.50-6.20); RED CELL DISTRIBUTION WIDTH 18.3 % (11.0-15.5); WHITE BLOOD COUNT (AUTO) 4.7 K/uL (4.8-10.8)
[2020-12-28 06:19] LABS: ALBUMIN 1.8 g/dL (3.5-5.0); BILIRUBIN,TOTAL 0.3 mg/dL (0.2-1.0); POTASSIUM 3.3 mmol/L (3.5-5.1)
[2020-12-28 08:00] VITALS: BP 152/77
[2020-12-28] MEDS: LISINOPRIL 20 MG TABLET PO SCH (09:16)
[2020-12-28] MEDS: DOCUSATE SODIUM 100 MG CAP PO SCH ×2 (09:16→21:18)
[2020-12-28] MEDS: PANTOPRAZOLE 40 MG TAB DR PO SCH (09:17)
[2020-12-28] MEDS: ATENOLOL 50 MG TABLET PO SCH (09:17)
[2020-12-28] MEDS: ASPIRIN 325MG EC TAB PO SCH (09:17)
[2020-12-28] MEDS: ENOXAPARIN SODIUM 30 MG/0.3 ML SQ SCH (09:18)
[2020-12-28 12:00] VITALS: BP 121/72
[2020-12-28] MEDS ORDERED: KCL 20 MEQ ERTAB PO ONE (14:28)
[2020-12-28] MEDS ORDERED: POTASSIUM CHLORIDE 10% ELIXIR 20 MEQ/15 ML UDCUP PO PRN (14:30)
[2020-12-28] MEDS ORDERED: POTASSIUM CHLORIDE 20MEQ/100ML 100 ML IV PRN (14:30)
[2020-12-28] MEDS ORDERED: LIDOCAINE HCL-MPF 1% 2ML VIAL IV PRN (14:30)
[2020-12-28] MEDS ORDERED: KCL 20 MEQ ERTAB PO PRN (14:30)
[2020-12-28 16:03] VITALS: BP 97/57
[2020-12-28 20:00] VITALS: BP 151/81
[2020-12-28] MEDS: ATORVASTATIN 40 MG TABLET PO SCH (21:18)
[2020-12-28] MEDS: TAMSULOSIN HCL 0.4 MG CAP.ER.24H PO SCH (21:18)
[2020-12-28] MEDS: LATANOPROST 2.5 ML DROPS OU SCH (22:24)
[2020-12-29] VITALS: BP 131/69
[2020-12-29 04:00] VITALS: BP 153/83
[2020-12-29 05:19] LABS: BASOPHILS % (AUTO) 0.7 % (0.0-5.0); EOSINOPHILS % (AUTO) 8.7 % (0.0-8.0); LYMPHOCYTES % (AUTO) 34.7 % (21.0-51.0); MEAN CORPUSCULAR HEMOGLOBIN 25.9 pg (27.0-33.0); MEAN CORPUSCULAR HGB CONC 31.6 g/dL (32.0-36.0); MEAN CORPUSCULAR VOLUME 81.8 fL (79-99); MONOCYTES % (AUTO) 11.4 % (3.0-13.0); PLATELET COUNT (AUTO) 244 K/uL (130-400); RED BLOOD CELL COUNT(AUTO) 3.79 MIL/uL (4.50-6.20); RED CELL DISTRIBUTION WIDTH 18.4 % (11.0-15.5); WHITE BLOOD COUNT (AUTO) 4.1 K/uL (4.8-10.8)
[2020-12-29] MEDS: ZOSYN 3.375GM+NS 50ML 50 ML IV SCH (05:46)
[2020-12-29 05:54] LABS: ALBUMIN 1.8 g/dL (3.5-5.0); BILIRUBIN,TOTAL 0.4 mg/dL (0.2-1.0); CREATININE 1.1 mg/dL (0.5-1.5); POTASSIUM 3.5 mmol/L (3.5-5.1); TOTAL PROTEIN, SERUM 4.8 g/dL (6.0-8.3)
[2020-12-29 08:00] VITALS: BP 141/71
[2020-12-29] MEDS: DOCUSATE SODIUM 100 MG CAP PO SCH (09:00)
[2020-12-29] MEDS: ENOXAPARIN SODIUM 30 MG/0.3 ML SQ SCH (09:46)
[2020-12-29] MEDS: ATENOLOL 50 MG TABLET PO SCH (09:47)
[2020-12-29] MEDS: PANTOPRAZOLE 40 MG TAB DR PO SCH (09:47)
[2020-12-29] MEDS: ASPIRIN 325MG EC TAB PO SCH (09:47)
[2020-12-29] MEDS: LISINOPRIL 20 MG TABLET PO SCH (09:47)
[2020-12-29] MEDS ORDERED: CEFTRIAXONE 1G VIAL IVP SCH (10:15)
[2020-12-29 11:23] VITALS: BP 116/68
[2020-12-29 16:00] VITALS: BP 105/72
[2020-12-29] MEDS ORDERED: CEPH500T PO (16:19)
[2020-12-29] MEDS ORDERED: PANT40TA PO (16:21)
== END 2020-12-29 19:23 | disposition home or self-care (01) | DRG 392 ==
LOC: EDH 22:03 → EDHIP 12-25 00:58 → 3AH 12-25 03:40
PROVIDERS: ADMIT Family Medicine; ATTEND Family Medicine
DX: K52.9 Noninfective gastroenteritis and colitis, unspecified (principal); E44.0 Moderate protein-calorie malnutrition; I11.9 Hypertensive heart disease without heart failure; I25.10 Atherosclerotic heart disease of native coronary artery without angina pectoris; D64.9 Anemia, unspecified; E78.00 Pure hypercholesterolemia, unspecified; E78.5 Hyperlipidemia, unspecified; B96.1 Klebsiella pneumoniae [K. pneumoniae] as the cause of diseases classified elsewhere; Z20.822 Contact with and (suspected) exposure to COVID-19; Z95.1 Presence of aortocoronary bypass graft; Z68.22 Body mass index [BMI] 22.0-22.9, adult; Z80.9 Family history of malignant neoplasm, unspecified; Z83.3 Family history of diabetes mellitus; Z82.49 Family history of ischemic heart disease and other diseases of the circulatory system; Z79.82 Long term (current) use of aspirin; Z79.899 Other long term (current) drug therapy; Z90.49 Acquired absence of other specified parts of digestive tract
CPT/HCPCS: 36415; 71045; 71250; 74176; 80053; 81003; 82550; 83605; 83874; 84145; 84484; 85025; 85610; 85730; 86900; 86901; 87040; 87046; 87077; 87088; 87186; 87426; 87804; 87880; 93005; 99291; G0378; J0360; J0696; J1650; J2543; J7030; J7040; J7120; U0003

== ENCOUNTER 2021-01-21 13:11 | Inpatient (IN) | payer MEDICARE ==
[~2021-01-21] VITALS: Ht 170.2 cm; Wt 59.0 kg
[~2021-01-21 13:11] MED LIST changes: +AEC81 PO; -ASPI-1012 PO; +CEPH500T PO; +PANT40TA PO
[2021-01-21] MEDS ORDERED: ONDANSETRON 4MG INJ ONE (14:01)
[2021-01-21] MEDS ORDERED: 0.9%NACL 1000ML 1,000 ML IV ONE ×2 (14:02→15:32)
[2021-01-21] MEDS ORDERED: MORPHINE 4 MG SYG ONE (14:02)
[2021-01-21 14:15] LABS: BASOPHILS % (AUTO) 0.2 % (0.0-5.0); EOSINOPHILS % (AUTO) 0.8 % (0.0-8.0); HEMATOCRIT 36.6 % (42-54); MEAN CORPUSCULAR HEMOGLOBIN 26.4 pg (27.0-33.0); MEAN CORPUSCULAR VOLUME 82.4 fL (79-99); MONOCYTES % (AUTO) 3.7 % (3.0-13.0); NEUTROPHILS % (AUTO) 91.9 % (40.0-77.0); PLATELET COUNT (AUTO) 272 K/uL (130-400); RED BLOOD CELL COUNT(AUTO) 4.44 MIL/uL (4.50-6.20); RED CELL DISTRIBUTION WIDTH 19.7 % (11.0-15.5); WHITE BLOOD COUNT (AUTO) 14.8 K/uL (4.8-10.8)
[2021-01-21 14:27] LABS: CREATININE 1.5 mg/dL (0.5-1.5); POTASSIUM 4.6 mmol/L (3.5-5.1)
[2021-01-21 14:31] LABS: ALBUMIN 2.6 g/dL (3.5-5.0); BILIRUBIN,TOTAL 0.4 mg/dL (0.2-1.0); TOTAL PROTEIN, SERUM 6.4 g/dL (6.0-8.3)
[2021-01-21 14:33] LABS: INR 1.06 (0.85-1.15); PROTHROMBIN TIME 11.5 SEC (9.6-11.6)
[2021-01-21 14:35] LABS: PARTIAL THROMBOPLASTIN TIME 23.9 SEC (26.3-35.5)
[2021-01-21] MEDS ORDERED: ACETAMINOPHEN 325 MG TAB ONE (14:37)
[2021-01-21] MEDS ORDERED: ZOSYN 3.375GM+NS 50ML 50 ML IV ONE (14:37)
[2021-01-21 14:48] LABS: B-TYPE NATRIURETIC PEPTIDE 71 pg/mL (0-100)
[2021-01-21] MEDS ORDERED: ONDANSETRON 4MG INJ IVP PRN (17:00)
[2021-01-21] MEDS ORDERED: FAMOTIDINE 20MG VIAL IV SCH ×2 (17:00→17:15)
[2021-01-21] MEDS ORDERED: PHARMACY COMMUNICATION MISC SCH (17:30)
[2021-01-21] MEDS ORDERED: LACTATED RINGERS 1000ML 1,000 ML IV ONE (17:55)
[2021-01-21] MEDS ORDERED: HYDROMORPHONE 0.5 MG SYG (0.5MG/0.5ML) IVP PRN (19:30)
[2021-01-21] MEDS: ZOSYN 3.375GM+NS 50ML 50 ML IV SCH (20:47)
[2021-01-21] MEDS: LACTATED RINGERS 1000ML 1,000 ML IV SCH (20:47)
[2021-01-21 21:44] VITALS: BP 146/78
[2021-01-21 22:30] LABS: APPEARANCE,URINE Clear (CLEAR); BILIRUBIN,URINE Negative (NEGATIVE); COLOR,URINE Yellow (YELLOW); GLUCOSE, URINE (UA) Negative (NEGATIVE); KETONES,URINE Trace mg/dL (NEGATIVE); LEUKOCYTE ESTERASE ,URINE Negative (NEGATIVE); NITRATE,URINE Negative (NEGATIVE); OCCULT BLOOD,URINE Negative (NEGATIVE); PH,URINE 5.5 (5.0-8.0); PROTEIN,URINE Negative (NEGATIVE); UROBILINOGEN,URINE 0.2 mg/dL (0.2-1.0)
[2021-01-21] MEDS ORDERED: TRAN4TAB25 PO (22:45)
[2021-01-21] MEDS ORDERED: OMEP20TA25 PO (22:45)
[2021-01-21] MEDS ORDERED: ASPI-1026 PO (22:45)
[2021-01-21] MEDS ORDERED: DOCU-116 PO (22:46)
[2021-01-22 00:04] VITALS: BP 105/59
[2021-01-22 04:46] VITALS: BP_SYST 105; BP_SYST 121; BP_DIAS 59; BP_DIAS 66
[2021-01-22] MEDS: LACTATED RINGERS 1000ML 1,000 ML IV SCH ×2 (06:05→18:03)
[2021-01-22 06:12] LABS: BASOPHILS % (AUTO) 0.5 % (0.0-5.0); EOSINOPHILS % (AUTO) 1.8 % (0.0-8.0); HEMATOCRIT 30.4 % (42-54); LYMPHOCYTES % (AUTO) 13.9 % (21.0-51.0); MEAN CORPUSCULAR HEMOGLOBIN 25.9 pg (27.0-33.0); MEAN CORPUSCULAR HGB CONC 31.3 g/dL (32.0-36.0); MEAN CORPUSCULAR VOLUME 82.8 fL (79-99); MONOCYTES % (AUTO) 6.6 % (3.0-13.0); NEUTROPHILS % (AUTO) 76.9 % (40.0-77.0); PLATELET COUNT (AUTO) 219 K/uL (130-400); RED BLOOD CELL COUNT(AUTO) 3.67 MIL/uL (4.50-6.20); RED CELL DISTRIBUTION WIDTH 19.9 % (11.0-15.5); WHITE BLOOD COUNT (AUTO) 7.4 K/uL (4.8-10.8)
[2021-01-22 06:39] LABS: ALBUMIN 1.8 g/dL (3.5-5.0); BILIRUBIN,TOTAL 0.4 mg/dL (0.2-1.0); CREATININE 1.2 mg/dL (0.5-1.5); MAGNESIUM 1.3 mg/dL (1.80-2.40); POTASSIUM 4.3 mmol/L (3.5-5.1); TOTAL PROTEIN, SERUM 5.1 g/dL (6.0-8.3)
[2021-01-22] MEDS ORDERED: MAGNESIUM 2GM PREMIX 50ML 50 ML IV PRN (07:45)
[2021-01-22 08:00] VITALS: BP 132/79
[2021-01-22] MEDS: ZOSYN 3.375GM+NS 50ML 50 ML IV SCH (08:27)
[2021-01-22] MEDS: FAMOTIDINE 20MG VIAL IV SCH (08:27)
[2021-01-22 12:00] VITALS: BP 117/70
[2021-01-22 16:00] VITALS: BP 135/74
[2021-01-22 20:00] VITALS: BP 123/73
[2021-01-22] MEDS: TAMSULOSIN HCL 0.4 MG CAP.ER.24H PO SCH (20:09)
[2021-01-23] VITALS (7 sets, daily range): BP systolic 109–154; BP diastolic 61–84
[2021-01-23] MEDS: FAMOTIDINE 20MG VIAL IV SCH (08:23)
[2021-01-23 08:46] LABS: BASOPHILS % (AUTO) 0.4 % (0.0-5.0); EOSINOPHILS % (AUTO) 2.2 % (0.0-8.0); HEMATOCRIT 31.9 % (42-54); LYMPHOCYTES % (AUTO) 13.6 % (21.0-51.0); MEAN CORPUSCULAR HEMOGLOBIN 26.3 pg (27.0-33.0); MEAN CORPUSCULAR HGB CONC 31.7 g/dL (32.0-36.0); MEAN CORPUSCULAR VOLUME 83.1 fL (79-99); MONOCYTES % (AUTO) 8.2 % (3.0-13.0); NEUTROPHILS % (AUTO) 75.3 % (40.0-77.0); PLATELET COUNT (AUTO) 217 K/uL (130-400); RED BLOOD CELL COUNT(AUTO) 3.84 MIL/uL (4.50-6.20); RED CELL DISTRIBUTION WIDTH 20.1 % (11.0-15.5); WHITE BLOOD COUNT (AUTO) 7.8 K/uL (4.8-10.8)
[2021-01-23 08:57] LABS: ALBUMIN 1.9 g/dL (3.5-5.0); BILIRUBIN,TOTAL 0.4 mg/dL (0.2-1.0); POTASSIUM 3.8 mmol/L (3.5-5.1); TOTAL PROTEIN, SERUM 5.3 g/dL (6.0-8.3)
[2021-01-23] MEDS: LACTATED RINGERS 1000ML 1,000 ML IV SCH (14:23)
[2021-01-23] MEDS: TAMSULOSIN HCL 0.4 MG CAP.ER.24H PO SCH (20:43)
[2021-01-24 04:04] LABS: BASOPHILS % (AUTO) 0.4 % (0.0-5.0); EOSINOPHILS % (AUTO) 2.5 % (0.0-8.0); HEMATOCRIT 28.9 % (42-54); LYMPHOCYTES % (AUTO) 12.6 % (21.0-51.0); MEAN CORPUSCULAR HEMOGLOBIN 26.8 pg (27.0-33.0); MEAN CORPUSCULAR HGB CONC 33.2 g/dL (32.0-36.0); MEAN CORPUSCULAR VOLUME 80.7 fL (79-99); MONOCYTES % (AUTO) 7.2 % (3.0-13.0); PLATELET COUNT (AUTO) 198 K/uL (130-400); RED BLOOD CELL COUNT(AUTO) 3.58 MIL/uL (4.50-6.20); RED CELL DISTRIBUTION WIDTH 19.4 % (11.0-15.5); WHITE BLOOD COUNT (AUTO) 6.8 K/uL (4.8-10.8)
[2021-01-24 04:19] LABS: ALBUMIN 1.7 g/dL (3.5-5.0); BILIRUBIN,TOTAL 0.3 mg/dL (0.2-1.0); CREATININE 0.9 mg/dL (0.5-1.5); POTASSIUM 3.7 mmol/L (3.5-5.1); TOTAL PROTEIN, SERUM 4.9 g/dL (6.0-8.3)
[2021-01-24 04:22] VITALS: BP 120/69
[2021-01-24 08:00] VITALS: BP 124/71
[2021-01-24] MEDS: FAMOTIDINE 20MG VIAL IV SCH (08:38)
[2021-01-24 11:25] VITALS: BP 134/79
[2021-01-24] MEDS: LACTATED RINGERS 1000ML 1,000 ML IV SCH (12:27)
== END 2021-01-24 14:00 | disposition home health service (06) | DRG 872 ==
LOC: EDH 13:11 → EDHIP 16:36 → 4DH 20:40
PROVIDERS: ADMIT Family Medicine; ATTEND Family Medicine
PROC: 0D9670Z Drainage of Stomach with Drainage Device, Via Natural or Artificial Opening (ICD-10-PCS; principal; 2021-01-22)
DX: A41.9 Sepsis, unspecified organism (principal); K56.609 Unspecified intestinal obstruction, unspecified as to partial versus complete obstruction; N17.9 Acute kidney failure, unspecified; I25.10 Atherosclerotic heart disease of native coronary artery without angina pectoris; K21.00 Gastro-esophageal reflux disease with esophagitis, without bleeding; R53.81 Other malaise; K59.00 Constipation, unspecified; E66.9 Obesity, unspecified; I10 Essential (primary) hypertension; E78.5 Hyperlipidemia, unspecified; Z80.9 Family history of malignant neoplasm, unspecified; Z95.1 Presence of aortocoronary bypass graft; Z83.3 Family history of diabetes mellitus; Z68.20 Body mass index [BMI] 20.0-20.9, adult; Z79.899 Other long term (current) drug therapy; Z79.82 Long term (current) use of aspirin; Z90.49 Acquired absence of other specified parts of digestive tract
CPT/HCPCS: 36415; 71045; 74176; 80053; 81003; 82948; 83605; 83690; 83735; 83880; 84145; 84484; 85025; 85610; 85730; 86900; 86901; 87040; 93005; 97039; 99291; G0378; J2270; J2405; J2543; J3475; J3490; J7030; J7120

== ENCOUNTER 2021-03-13 16:36 | Inpatient (IN) | payer MEDICARE ==
[~2021-03-13] VITALS: Ht 170.2 cm; Wt 65.9 kg
[~2021-03-13 16:36] MED LIST changes: -AEC81 PO; +ASPI-1026 PO; -CEPH500T PO; +OMEP20TA25 PO; -PANT40TA PO
[2021-03-13] MEDS ORDERED: ONDANSETRON HCL 4 MG/2 ML VIAL ONE (17:20)
[2021-03-13 18:11] LABS: BASOPHILS % (AUTO) 0.5 % (0.0-5.0); HEMATOCRIT 35.8 % (42-54); LYMPHOCYTES % (AUTO) 14.3 % (21.0-51.0); MEAN CORPUSCULAR HEMOGLOBIN 27.1 pg (27.0-33.0); MEAN CORPUSCULAR HGB CONC 32.7 g/dL (32.0-36.0); MEAN CORPUSCULAR VOLUME 83.1 fL (79-99); MONOCYTES % (AUTO) 14.3 % (3.0-13.0); NEUTROPHILS % (AUTO) 69.4 % (40.0-77.0); PLATELET COUNT (AUTO) 268 K/uL (130-400); RED BLOOD CELL COUNT(AUTO) 4.31 MIL/uL (4.50-6.20); WHITE BLOOD COUNT (AUTO) 5.7 K/uL (4.8-10.8)
[2021-03-13 18:23] LABS: INR 1.02 (0.85-1.15); PROTHROMBIN TIME 11.1 SEC (9.6-11.6)
[2021-03-13 18:25] LABS: PARTIAL THROMBOPLASTIN TIME 25.4 SEC (26.3-35.5)
[2021-03-13 18:31] LABS: CARBON DIOXIDE 24 mmol/L (21-32); CHLORIDE 98 mmol/L (101-111); CREATININE 1.4 mg/dL (0.5-1.5); GLOMERULAR FILTR. RATE CALC 51 mL/min (>60); GLUCOSE,RANDOM 190 mg/dL (70-105); POTASSIUM 4.3 mmol/L (3.5-5.1); SODIUM SERUM 132 mmol/L (136-145); UREA NITROGEN, BLOOD 27 mg/dL (7-18)
[2021-03-13 18:32] LABS: B-TYPE NATRIURETIC PEPTIDE 63 pg/mL (0-100)
[2021-03-13 18:35] LABS: ALANINE AMINOTRANSFERASE 17 U/L (12-78); ASPARTATE AMINOTRANSFERASE 17 U/L (10-37); BILIRUBIN,TOTAL 0.2 mg/dL (0.2-1.0); TOTAL PROTEIN, SERUM 6.1 g/dL (6.0-8.3)
[2021-03-13 18:36] LABS: LIPASE < 50 U/L (114-286)
[2021-03-13] MEDS ORDERED: DIATR MEGLU/DIATRIZOATE SODIUM 30 ML BOTTLE ONE ×2 (20:24→23:07)
[2021-03-13] MEDS ORDERED: ONDANSETRON HCL 4 MG/2 ML VIAL IV PRN (20:30)
[2021-03-13] MEDS ORDERED: MORPHINE SULFATE 2 MG/ML 1ML SYG IV PRN (20:30)
[2021-03-13] MEDS ORDERED: ACETAMINOPHEN 325 MG TAB PO PRN ×2 (20:30)
[2021-03-13 22:35] VITALS: BP 123/77
[2021-03-13] MEDS: FAMOTIDINE/PF 20 MG/2 ML VIAL IV SCH (23:05)
[2021-03-13] MEDS: SODIUM CHLORIDE 0.9% 1000ML 1,000 ML IV SCH (23:05)
[2021-03-13] MEDS ORDERED: ONDA4TAB10 PO (23:19)
[2021-03-13] MEDS ORDERED: MEGE400O4 PO (23:19)
[2021-03-13] MEDS ORDERED: NITR0.4T50 SL (23:19)
[2021-03-13] MEDS ORDERED: FAMO20TA8 PO (23:19)
[2021-03-13] MEDS ORDERED: ATEN25TA PO (23:19)
[2021-03-14 04:31] VITALS: BP 128/75
[2021-03-14] MEDS ORDERED: NITROGLYCERIN 0.4 MG SL TAB SL SCH (04:45)
[2021-03-14] MEDS: SENNOSIDES 8.6 MG TABLET PO SCH ×2 (05:19→23:32)
[2021-03-14 05:43] LABS: BASOPHILS % (AUTO) 0.6 % (0.0-5.0); EOSINOPHILS % (AUTO) 1.3 % (0.0-8.0); HEMATOCRIT 32.1 % (42-54); LYMPHOCYTES % (AUTO) 18.3 % (21.0-51.0); MEAN CORPUSCULAR HEMOGLOBIN 27.9 pg (27.0-33.0); MEAN CORPUSCULAR HGB CONC 34.3 g/dL (32.0-36.0); MEAN CORPUSCULAR VOLUME 81.5 fL (79-99); MONOCYTES % (AUTO) 14.8 % (3.0-13.0); NEUTROPHILS % (AUTO) 64.6 % (40.0-77.0); PLATELET COUNT (AUTO) 262 K/uL (130-400); RED BLOOD CELL COUNT(AUTO) 3.94 MIL/uL (4.50-6.20); RED CELL DISTRIBUTION WIDTH 17.8 % (11.0-15.5); WHITE BLOOD COUNT (AUTO) 4.7 K/uL (4.8-10.8)
[2021-03-14 06:12] LABS: ALBUMIN 1.7 g/dL (3.5-5.0); BILIRUBIN,TOTAL 0.3 mg/dL (0.2-1.0); CREATININE 1.2 mg/dL (0.5-1.5); POTASSIUM 4.6 mmol/L (3.5-5.1); TOTAL PROTEIN, SERUM 5.4 g/dL (6.0-8.3)
[2021-03-14 06:54] VITALS: BP 123/78
[2021-03-14] MEDS: DOCUSATE SODIUM 100 MG CAP PO SCH ×2 (08:46→20:34)
[2021-03-14] MEDS: MEGESTROL 400 MG/10 ML UDCUP PO SCH (08:46)
[2021-03-14] MEDS: ASPIRIN 325 MG TABLET PO SCH (08:46)
[2021-03-14] MEDS: ATENOLOL 25 MG TABLET PO SCH (08:47)
[2021-03-14] MEDS: SIMETHICONE 40 MG/0.6 ML ML PO SCH ×4 (10:19→20:35)
[2021-03-14 15:05] VITALS: BP 97/66
[2021-03-14 16:53] VITALS: BP 116/73
[2021-03-14] MEDS: SODIUM CHLORIDE 0.9% 1000ML 1,000 ML IV SCH (17:39)
[2021-03-14 20:00] VITALS: BP 108/70
[2021-03-14] MEDS: FAMOTIDINE/PF 20 MG/2 ML VIAL IV SCH (20:34)
[2021-03-14] MEDS ORDERED: TAMSULOSIN HCL 0.4 MG CAP.ER.24H PO SCH (21:00)
[2021-03-14] MEDS ORDERED: LATANOPROST 2.5 ML DROPS OU SCH (21:00)
[2021-03-14] MEDS ORDERED: ATORVASTATIN CALCIUM 40 MG TABLET PO SCH (21:00)
[2021-03-15] VITALS: BP 96/60
[2021-03-15 04:00] VITALS: BP 93/62
[2021-03-15 04:38] LABS: BASOPHILS % (AUTO) 0.7 % (0.0-5.0); EOSINOPHILS % (AUTO) 4.8 % (0.0-8.0); HEMATOCRIT 28.9 % (42-54); LYMPHOCYTES % (AUTO) 32.1 % (21.0-51.0); MEAN CORPUSCULAR HEMOGLOBIN 27.6 pg (27.0-33.0); MEAN CORPUSCULAR HGB CONC 33.6 g/dL (32.0-36.0); MEAN CORPUSCULAR VOLUME 82.1 fL (79-99); MONOCYTES % (AUTO) 14.5 % (3.0-13.0); NEUTROPHILS % (AUTO) 47.7 % (40.0-77.0); PLATELET COUNT (AUTO) 250 K/uL (130-400); RED BLOOD CELL COUNT(AUTO) 3.52 MIL/uL (4.50-6.20); RED CELL DISTRIBUTION WIDTH 17.7 % (11.0-15.5); WHITE BLOOD COUNT (AUTO) 4.1 K/uL (4.8-10.8)
[2021-03-15 05:33] LABS: ALBUMIN 1.6 g/dL (3.5-5.0); BILIRUBIN,TOTAL 0.4 mg/dL (0.2-1.0); CREATININE 1.2 mg/dL (0.5-1.5); POTASSIUM 4.3 mmol/L (3.5-5.1)
[2021-03-15 08:02] VITALS: BP 116/66
[2021-03-15] MEDS: MEGESTROL 400 MG/10 ML UDCUP PO SCH (09:28)
[2021-03-15] MEDS: ATENOLOL 25 MG TABLET PO SCH (09:29)
[2021-03-15] MEDS: DOCUSATE SODIUM 100 MG CAP PO SCH (09:29)
[2021-03-15] MEDS: ASPIRIN 325 MG TABLET PO SCH (09:29)
[2021-03-15] MEDS: SIMETHICONE 40 MG/0.6 ML ML PO SCH ×2 (09:31→12:40)
[2021-03-15 11:59] VITALS: BP 123/72
[2021-03-15] MEDS: SODIUM CHLORIDE 0.9% 1000ML 1,000 ML IV SCH (12:40)
== END 2021-03-15 15:57 | disposition home or self-care (01) | DRG 394 ==
LOC: EDH 16:36 → EDHIP 20:28 → 4BH 22:03
PROVIDERS: ADMIT Internal Medicine; ATTEND Internal Medicine
PROC: 0D9670Z Drainage of Stomach with Drainage Device, Via Natural or Artificial Opening (ICD-10-PCS; principal; 2021-03-15)
DX: K43.0 Incisional hernia with obstruction, without gangrene (principal); E87.1 Hypo-osmolality and hyponatremia; E78.5 Hyperlipidemia, unspecified; I10 Essential (primary) hypertension; N40.0 Benign prostatic hyperplasia without lower urinary tract symptoms; Z87.891 Personal history of nicotine dependence; Z90.49 Acquired absence of other specified parts of digestive tract; Z95.1 Presence of aortocoronary bypass graft; Z83.3 Family history of diabetes mellitus; Z20.822 Contact with and (suspected) exposure to COVID-19
CPT/HCPCS: 36415; 71045; 74176; 80053; 83605; 83690; 83880; 84145; 84484; 85025; 85610; 85730; 87040; 87426; 93005; G0378; J2405; J3490; Q9963; U0003